=== PATIENT | female | born 1955 | race African-American/Black ===

== ENCOUNTER 2016-08-15 23:47 | Emergency (ER) | payer OTHER, BC ==
[~2016-08-15] VITALS: Ht 152.4 cm; Wt 70.3 kg
[~2016-08-15 23:47] MED LIST: ASTAGRAF XL1 MG PO; BACTRIM,SEPT1 TABLE1 PO; CELLCEPT500 MG PO; COREG25 M1 PO; DAILY MULTIPLE1 EACH PO; PRAVACHOL40 MG PO; PREDNISONE5 MG PO; PROCARDIA XL30 MG PO; PROGRAF1 MG PO; ROCEPHIN1000 MG IM; VALCYTE450 MG PO
[2016-08-15 23:54] VITALS: BP 120/76
[2016-08-16] MEDS ORDERED: NORCO 5/3251 TABLET PO (01:32)
== END 2016-08-16 01:45 | disposition home or self-care (01) ==
LOC: EME 23:47 → RME 23:47
DX: K08.89 Other specified disorders of teeth and supporting structures (principal); R22.0 Localized swelling, mass and lump, head; Z94.0 Kidney transplant status; Z87.891 Personal history of nicotine dependence
CPT/HCPCS: 99281; 99284

== ENCOUNTER 2017-04-23 05:42 | Emergency (ER) | payer OTHER, BC ==
[~2017-04-23] VITALS: Ht 152.4 cm; Wt 67.7 kg
[~2017-04-23 05:42] MED LIST changes: +NORCO 5/3251 TABLET PO
[2017-04-23] MEDS ORDERED: PERCOCET 5/31 TABLET PO (07:12)
[2017-04-23 07:32] VITALS: BP 122/99
== END 2017-04-23 07:32 | disposition home or self-care (01) ==
LOC: EME 05:42
DX: M54.16 Radiculopathy, lumbar region (principal); I10 Essential (primary) hypertension; Z94.0 Kidney transplant status; Z88.6 Allergy status to analgesic agent; Z88.0 Allergy status to penicillin; Z91.041 Radiographic dye allergy status; Z87.891 Personal history of nicotine dependence
CPT/HCPCS: 81003; 99281; 99283